=== PATIENT | female | born 1995 | race Two or more races ===

== ENCOUNTER 2020-09-22 19:57 | Emergency (ER) | payer OTHER ==
[~2020-09-22] VITALS: Ht 162.6 cm; Wt 63.0 kg
--- NOTE | 2020-09-22 20:17 | NUR ---
PT CAME TO ED [facility] DUE TO DECREASED MOBILITY IN RIGHT FOOT, PT IS UNABLE TO FLEX RIGHT FOOT BUT HAS FULL EXTENSION. PT PEDAL PULSES 2+, NAD, DIMINISHED SENSATION TO TOP ASPECT OF FOOT. REPORTS THIS HAS BEEN ONGOING FOR A FEW WEEKS. WCTM. PT PLACED ON SPO2/BP MONITORING, PROVIDED WARM BLANKETS FOR COMFORT, CALL LIGHT ON LAP, BED IN LOWEST, SO AT , WCTM.
--- NOTE | 2020-09-22 22:14 | NUR ---
PT RESTING ON FABRICE, NAD, SPLINT BEING APPLIED AT THIS TIME. VSS. TM.
--- NOTE | 2020-09-22 22:37 | NUR ---
PT UPDATED ON POC, NAD, RESTING ON GURNEY, SO AT BS, NO CHANGE IN CONDITION, WCTM.
--- NOTE | 2020-09-23 00:03 | NUR ---
MRI AT BS TO DETERMINE IF PT CAN GO WITH PIERCING. PT NAD, NO CHANGE IN CONDITION, WCTM.
--- NOTE | 2020-09-23 00:07 | NUR ---
PT TO MRI AT THIS TIME. NAD, NO CHANGE IN CONDITION.
--- NOTE | 2020-09-23 01:11 | NUR ---
PT NAD, RESTING ON GURNEY, SO AT BS, NO CHANGE IN CONDITION, PROVIDED WATER PER REQUEST, DENIES ADDITIONAL NEEDS, WCTM. WAITING FOR MRI READ
[2020-09-23 02:08] VITALS: BP 122/84
--- NOTE | 2020-09-23 02:09 | NUR ---
Patient given discharge instructions and they have confirmed that they understand the instructions. Patient ambulatory with steady gait. NAD, DENIES ADDITIONAL QUESTIONS OR NEEDS AT THIS TIME, NO PERSONAL BELONGINGS LEFT IN ROOM AFTER DC.
== END 2020-09-23 02:11 | disposition home or self-care (01) ==
LOC: ED 09-23 01:28
DX: M21.371 Foot drop, right foot (principal); M51.16 Intervertebral disc disorders with radiculopathy, lumbar region; M51.17 Intervertebral disc disorders with radiculopathy, lumbosacral region; R53.1 Weakness
CPT/HCPCS: 29515; 72110; 72148; 99285